=== PATIENT | male | born 1990 | race Two or more races ===

== ENCOUNTER 2024-09-26 16:01 | Inpatient (IN) | payer OTHER ==
[~2024-09-26] VITALS: Ht 172.7 cm; Wt 63.5 kg
[2024-09-26 16:21] LABS: PLATELET COUNT (AUTO) 435 K/uL (152-348); RED BLOOD CELL COUNT(AUTO) 5.10 MIL/uL (4.06-5.63); RED CELL DISTRIBUTION WIDTH 14.7 % (12.1-16.2); WHITE BLOOD COUNT (AUTO) 6.7 K/uL (3.6-10.2)
[2024-09-26 16:27] LABS: CREATININE 0.7 mg/dL (0.6-1.3); SODIUM SERUM 137 mmol/L (136-145); UREA NITROGEN, BLOOD 21 mg/dL (7-18)
[2024-09-26] MEDS: IV NORMAL SALINE 1000 ML BAG IV ONE (16:27)
[2024-09-26 16:33] LABS: ASPARTATE AMINOTRANSFERASE 15 U/L (15-37); TOTAL PROTEIN, SERUM 7.6 g/dL (6.4-8.2)
[2024-09-26] MEDS ORDERED: IOHEXOL 300MG/ML 100 ML INFUS..BTL ONE (18:31)
[2024-09-26] MEDS ORDERED: SWABABLE VALVE TRANSFER SET EA MC ONE (18:31)
[2024-09-26] MEDS ORDERED: IV NORMAL SALINE 250 ML IV ONE (18:31)
[2024-09-27] MEDS: IV NORMAL SALINE 1000 ML BAG IV ONE (01:53)
[2024-09-27 02:30] LABS: HIV-1/2 ANTIBODY NON REACTIVE (NONREACTIVE)
[2024-09-27 03:13] LABS: ETHANOL < 3 MG/DL (0-10)
[2024-09-27] MEDS ORDERED: ONDANSETRON 4 MG/2 ML VIAL IV PRN (08:45)
[2024-09-27] MEDS ORDERED: REMEDY ESSENTIAL ZINC PASTE 113 GM TP PRN (08:45)
[2024-09-27] MEDS ORDERED: MAGNESIUM HYDROXIDE 30 ML LIQUID UDC PO PRN (08:45)
[2024-09-27] MEDS: ACETAMINOPHEN 325 MG TABLET PO PRN (09:00)
[2024-09-27] MEDS: PANTOPRAZOLE SODIUM 40 MG VIAL IV SCH (09:00)
[2024-09-27] MEDS ORDERED: ACETAMINOPHEN 325 MG TABLET ONE (09:15)
[2024-09-27] MEDS ORDERED: PANTOPRAZOLE SODIUM 40 MG VIAL ONE (10:19)
[2024-09-27] MEDS: IV D5 1/2 NS 1000 ML 1,000 ML IV PRN (11:34)
[2024-09-27 11:39] VITALS: BP 119/81; TEMP 97.5; O2SAT 100
[2024-09-27 15:49] VITALS: BP 127/80; TEMP 97.9; O2SAT 99
[2024-09-27 19:30] VITALS: BP 120/69; TEMP 98.5; O2SAT 100
[2024-09-28] MEDS: TRAZODONE 50 MG TABLET PO PRN (02:50)
[2024-09-28 03:07] LABS: HEPATITIS B CORE AB, IgM Negative (Negative); HEPATITIS B SURFACE AB, QUAL Reactive (.)
[2024-09-28 05:08] LABS: HEPATITIS B CORE AB, TOTAL Negative (Negative); HEPATITIS B SURFACE AG Negative (Negative); HEPATITIS C VIRUS ANTIBODY Reactive (Non Reactive)
[2024-09-28 05:49] VITALS: BP 123/84; TEMP 98.7; O2SAT 99
[2024-09-28] MEDS: PANTOPRAZOLE SODIUM 40 MG TABLET.DR PO SCH (06:45)
[2024-09-28 08:55] LABS: *BILIRUBIN,URIN NEGATIVE (NEGATIVE); *BLOOD, URINE NEGATIVE (NEGATIVE); *CLARITY,URINE CLEAR (CLEAR); *COLOR,URINE YELLOW (YELLOW); *KETONES,URINE NEGATIVE (NEGATIVE); *PROTEIN,URINE NEGATIVE (NEGATIVE); *UROBILINOGEN,URINE 1.0 E.U./dl (NORMAL); LEUKOCYTE ESTERASE ,URINE NEGATIVE (NEGATIVE); NITRITE, URINE NEGATIVE (NEGATIVE); UGLUCOSE NEGATIVE (NEGATIVE)
[2024-09-28 09:09] LABS: *AMPHETAMINE, URINE NEGATIVE (NEGATIVE); *BARBITURATE, URINE NEGATIVE (NEGATIVE); *BENZODIAZEPINE, URINE NEGATIVE (NEGATIVE); *CANNABINOID, URINE NEGATIVE (NEGATIVE); *COCCAINE, URINE NEGATIVE (NEGATIVE); *OPIATE, URINE NEGATIVE (NEGATIVE); *PHENCYCLIDINE SCREEN,URINE NEGATIVE (NEGATIVE); FENTANYL, URINE POSITIVE (NEGATIVE)
[2024-09-28 11:26] VITALS: BP 124/68; TEMP 98; O2SAT 100
[2024-09-28 11:40] LABS: PLATELET COUNT (AUTO) 368 K/uL (152-348); RED BLOOD CELL COUNT(AUTO) 4.43 MIL/uL (4.06-5.63); RED CELL DISTRIBUTION WIDTH 14.4 % (12.1-16.2); WHITE BLOOD COUNT (AUTO) 5.2 K/uL (3.6-10.2)
[2024-09-28 11:49] LABS: CREATININE 0.8 mg/dL (0.6-1.3); SODIUM SERUM 143.0 mmol/L (136-145); UREA NITROGEN, BLOOD 4.0 mg/dL (7-18)
[2024-09-28] MEDS ORDERED: POTASSIUM CHLORIDE 20 MEQ TAB.PRT.SR PO ONE (12:15)
[2024-09-28] MEDS: MAGNESIUM OXIDE 400 MG TABLET PO ONE (12:32)
[2024-09-28] MEDS: NEUTRA PHOS PACKET PO SCH (12:32)
[2024-09-28] MEDS: MUPIROCIN 2% OINT 22 GM TUBE TP SCH (13:44)
[2024-09-28 16:10] VITALS: BP 124/78; TEMP 97.6; O2SAT 100
[2024-09-28 19:33] VITALS: BP 124/78; TEMP 99; O2SAT 100
[2024-09-29 05:49] VITALS: BP 138/90; TEMP 98.4; O2SAT 99
[2024-09-29 07:15] LABS: PLATELET COUNT (AUTO) 374 K/uL (152-348); RED BLOOD CELL COUNT(AUTO) 4.57 MIL/uL (4.06-5.63); RED CELL DISTRIBUTION WIDTH 14.1 % (12.1-16.2); WHITE BLOOD COUNT (AUTO) 6.1 K/uL (3.6-10.2)
[2024-09-29 07:34] LABS: CREATININE 0.4 mg/dL (0.6-1.3); SODIUM SERUM 151 mmol/L (136-145); UREA NITROGEN, BLOOD 5 mg/dL (7-18)
[2024-09-29 12:00] VITALS: BP 121/74; TEMP 98.7; O2SAT 99
[2024-09-29 14:52] LABS: *CREATININE,URINE 60.2 mg/dL (30-125); *SODIUM RNDM,URINE 83.0 mmol/L (40-220); *URINE TOTAL PROTEIN RANDOM 6.0 mg/dL (<150/24HR)
[2024-09-29 16:09] VITALS: BP 117/71; TEMP 98.8; O2SAT 100
[2024-09-29] MEDS: NEUTRA PHOS PACKET PO ONE (16:40)
[2024-09-29 19:30] VITALS: BP 127/72; TEMP 98.6; O2SAT 100
[2024-09-30 04:15] VITALS: BP 111/64; TEMP 98.5; O2SAT 100
[2024-09-30 07:29] LABS: PLATELET COUNT (AUTO) 361 K/uL (152-348); RED BLOOD CELL COUNT(AUTO) 4.26 MIL/uL (4.06-5.63); RED CELL DISTRIBUTION WIDTH 14.9 % (12.1-16.2); WHITE BLOOD COUNT (AUTO) 6.1 K/uL (3.6-10.2)
[2024-09-30 08:04] LABS: CREATININE 0.6 mg/dL (0.6-1.3); SODIUM SERUM 143 mmol/L (136-145); UREA NITROGEN, BLOOD 6 mg/dL (7-18)
[2024-09-30 14:07] LABS: *HCV QUANT HCV Not Detected IU/mL (.)
== END 2024-09-30 13:10 | disposition home or self-care (01) | DRG 249 ==
LOC: ER 16:28 → MEDSURG3 09-27 10:08
PROVIDERS: ADMIT Student in an Organized Health Care Education/Training Program; ATTEND Registered Nurse Psychiatric/Mental Health
DX: A08.4 Viral intestinal infection, unspecified (principal); R64 Cachexia; E83.39 Other disorders of phosphorus metabolism; E87.0 Hyperosmolality and hypernatremia; L03.032 Cellulitis of left toe; L97.511 Non-pressure chronic ulcer of other part of right foot limited to breakdown of skin; L97.528 Non-pressure chronic ulcer of other part of left foot with other specified severity; F11.10 Opioid abuse, uncomplicated; Z59.02 Unsheltered homelessness; Z87.891 Personal history of nicotine dependence; R79.89 Other specified abnormal findings of blood chemistry; D75.839 Thrombocytosis, unspecified; E87.6 Hypokalemia; R73.9 Hyperglycemia, unspecified; Z86.19 Personal history of other infectious and parasitic diseases; F15.10 Other stimulant abuse, uncomplicated
CPT/HCPCS: 36415; 83605; 83735; 84100; 84300; 84443; 85025; 86704; 86705; 86706; 86803; 87040; 87340; 87350; 87521; 87806; A4606; A4663; G0378; G0480; J2470; J7040; J7042; Q9967